=== PATIENT | male | born 1955 | race Caucasian/White ===

== ENCOUNTER → 2016-09-09 | Outpatient (CLI) | payer OTHER ==
[~2016-09-09] MED LIST: ASPIRIN81 MG; CO Q-1010 MG; HEART PILL
--- NOTE | ~2016-09-09 | CT14 ---
[facility] A Service of [facility] & [facility] RADIOLOGY TEXT RESULTS PATIENT: LULA ST LOCATION: [facility] : 59 UNIT #: [id number] AGE: [address]: SHANNON DU SEX: M ORDER DR: [id number] [facility] [address] [place], [place] [address] [id number] O MR#: [id number] Acc #: [id number] NAME: LULA ST. : 1955 SEX: M STUDY DATE/TIME: 09/09/2016 10:44 UNIT: [facility] ROOM: STUDY DESCRIPTION: CT Angio Abdomen and Pelvis Attending Physician: Shannon Du Referring Physician: Shannon Du Ordering Physician: Physician Non-Staff Primary Care Physician: Adam Crum M.D. MEDICAL IMAGING REPORT This report is preliminary unless electronic signature is present EXAM CT angiogram of the abdomen and pelvis. INDICATION Aortic aneurysm. Patient was diagnosed in 2012. He had surgery in August 2016. TECHNIQUE Axial precontrast imaging was obtained through the abdomen and pelvis. This was followed by arterial phase imaging through the abdomen and pelvis and 90-second delayed-phase imaging through the abdomen and pelvis. Following this, 3-D reformatted images were obtained. This CT exam was performed with one or more of the following radiation dose reduction techniques: automatic exposure control, adjustment of mA and/or kV according to patient size, and iterative reconstruction. FINDINGS Images through the lung bases are clear. The patient is now status post endovascular repair of an abdominal aortic aneurysm. Stent graft extends from just below the renal arteries into the common iliac arteries. Aneurysm sac has diminished in size now measuring 5.0 x 4.5 cm, previously 5.0 x 5.0 cm. I do not see any convincing evidence of endoleak. Celiac axis and the superior mesenteric artery are widely patent. There is a separate origin of the left gastric artery from the abdominal aorta which is a normal anatomic variant. There are 2 right renal arteries and a single left renal artery, all of which I think are patent and without evidence of stenosis. 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 The patient does have some narrowing of the distal right external iliac artery which is new when compared to the prior [facility] A Service of [facility] & [facility] RADIOLOGY TEXT RESULTS PATIENT: LULA ST LOCATION: [facility] : 59 UNIT #: [id number] AGE: [address]: SHANNON DU SEX: M ORDER DR: examination and I think may be related to an additional dissection within the right external iliac artery. The vessel does remain patent and visualized portions of the right profunda femoris and superficial femoral arteries are patent. Left internal and external iliac arteries are patent. This patient does have stranding seen within the left inguinal region related to recent access attempt and there is also a dissection flap involving the left common femoral artery, as well. It also appears smaller in caliber than on the prior study. It does remain patent as are the visualized portions of the left profunda femoris and superficial femoral arteries. No focal hepatic lesions are seen. Spleen, stomach, and proximal small bowel are within normal limits, as are the adrenal glands and pancreas. Gallbladder also appears normal. No focal renal lesions are seen and there is no retroperitoneal adenopathy. Prostate is within normal limits as is the urinary bladder again there is some stranding within the left groin, likely related to recent surgery. Review of bony windows does not demonstrate any aggressive osseous abnormalities. IMPRESSION 1. Interval deployment of an endovascular stent graft extending from just below the renal arteries into the common iliac arteries bilaterally. Aneurysm sac is diminished in size and I do not see any evidence of endoleak. 2. 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 There is an associated caliber change within the right external iliac artery distally which is new when compared to the prior exam and again is likely related to this dissection. An additional dissection flap is also noted within the left common femoral artery. Again which appears smaller than on the prior exam, likely related to the dissection. 3. Separate origin of the left gastric artery from the abdominal aorta. 4. Please see the body of the report for any other additional incidental findings. Dictated by... Lucille Puentes M.D. THIS IS AN ELECTRONICALLY VERIFIED REPORT Lucille Puentes M.D. at 09/10/2016 4:58 PM AFF/tmw TD: 09/09/2016 17:06 JOB #: [id number] [facility] A Service of [facility] RADIOLOGY TEXT RESULTS PATIENT: LULA ST LOCATION: [facility] : 59 UNIT #: [id number] AGE: [address]: SHANNON DU SEX: M ORDER DR: MEDICAL IMAGING REPORT Page 1 of 1 COPY
[2016-09-09 10:35] LABS: POC - CREATININE 1.42 mg/dL (0.64-1.27)
== END | disposition home or self-care (01) ==
LOC: CCAT 09:36
PROVIDERS: Nurse Practitioner Family
DX: I71.4 Abdominal aortic aneurysm, without rupture (principal); I77.72 Dissection of iliac artery; I77.77 Dissection of artery of lower extremity; Z95.828 Presence of other vascular implants and grafts
CPT/HCPCS: 74174; 82565; Q9967